=== PATIENT | male | born 2000 | race Two or more races ===

== ENCOUNTER 2024-11-30 16:36 | Emergency (ER) | payer SELFPAY ==
[2024-11-30 16:49] VITALS: BP 155/94
[2024-11-30 17:07] LABS: Hematocrit 44.2 % (39.0-52.0); Hemoglobin 15.7 g/dL (13.0-18.0); Mean Corp Hgb Conc. 35.5 g/dL (33.0-37.0); Mean Corpuscular Volume 83.4 fL (80.0-94.0); Nucleated Red Blood Cells % 0 % (-); Platelet Count 231 10^3/uL (130-400); Red Cell Dist. Width 11.5 % (11.5-14.5)
[2024-11-30 17:21] LABS: ALT (SGPT) 16 U/L (0-50); AST (SGOT) 25 U/L (17-59); Albumin 5.7 g/dl (3.5-5.0); Alkaline Phosphatase 71 U/L (38-126); Blood Urea Nitrogen 10 mg/dl (9-20); Calcium 10.1 mg/dl (8.4-10.2); Carbon Dioxide 24 mmol/L (22-30); Chloride 105 mmol/L (98-107); Glucose 103 mg/dl (70-99); Potassium 4.1 mmol/L (3.5-5.1); Sodium 142 mmol/L (135-145); Total Protein 9.3 g/dl (6.3-8.2); eGFR > 60.00
[2024-11-30 17:32] LABS: Troponin I < 0.012 ng/ml
[2024-11-30 20:12] VITALS: BP 135/98
[2024-11-30 20:20] VITALS: BMI 16.5
[2024-11-30 21:00] VITALS: BP 128/85
--- NOTE | 2024-11-30 21:46 | ED.GENMED ---
History of Present Illness
General
Chief Complaint: Chest Pain
Source: patient and family
Time Seen by Provider: 11/30/24 20:18
History of Present Illness
History of Present Illness:
Note:
CHIEF COMPLAINT(S)
Dizziness and chest pain in the left upper chest.
HISTORY OF PRESENT ILLNESS
The patient is a 24-year-old male who presents with dizziness and pain in the left upper chest, near the left shoulder, persisting for the last two to three days. The dizziness and pain occurred concomitantly, and although the patient has
experienced similar symptoms intermittently since last year, the recent episode has been troublesome enough to affect daily activities, such as carrying objects with the left arm. The pain is exacerbated by arm movement and has occasionally left the
patient needing to stay immobile until the symptoms subside. When the pain occurs, the patient describes a sensation simon to feeling 'completely like drunk.' The patient denies recent injury, leg pain or swelling, trouble breathing, abdominal pain,
rashes, or hemoptysis. He reports occasional minor chest pain at rest that worsens with movement, suggesting a possible musculoskeletal origin rather than cardiac. There is tenderness localized to the left upper chest wall near the pectoralis
muscle, which raises the suspicion of muscle strain or potential costochondritis.
EXTERNAL RECORDS REVIEWED
The patients EKG and blood work were reviewed and reported as normal. Heart enzymes are within normal limits.
PHYSICAL EXAM
General: Alert, no acute distress.
Skin: Warm, dry.
Head: Normocephalic, atraumatic.
Neck: Supple, trachea midline.
Eyes, Ears, Nose, Mouth, and Throat: Oral mucosa moist.
Cardiovascular: Heart rate regular without murmur. No edema.
Respiratory: Lungs clear to auscultation bilaterally. Respirations are non-labored.
Gastrointestinal: Abdomen nondistended.
Back: Normal range of motion, Normal alignment.
Musculoskeletal: Tenderness noted in the left upper chest wall, medial to the left deltoid muscle at the pectoralis muscle. Normal range of motion, normal strength otherwise.
Neurological: Alert and oriented to person, place, time, and situation. No focal neurological deficit observed.
Psychiatric: Cooperative, appropriate mood & affect.
PLAN
1. Obtain a chest X-ray to rule out any rib dysfunction and confirm the absence of rib fracture or significant musculoskeletal pathology.
2. Review lab results and chest X-ray findings to ensure cardiac and aortic health.
3. Monitor symptoms and advise avoiding activities that exacerbate pain.
4. Follow-up for further evaluation and management based on X-ray findings.
DIFFERENTIAL DIAGNOSIS
The Differential Diagnosis includes, in no particular order and is not limited to:
1. Costochondritis
2. Muscular strain of the pectoralis muscle
3. Rib dysfunction or fracture
4. Myocardial ischemia (unlikely given normal EKG and heart enzymes)
5. Cardiac arrhythmia
6. Pericarditis
7. Pulmonary embolism (unlikely given normal respiratory findings and absence of leg swelling)
8. Anxiety or panic disorder
9. Gastroesophageal reflux disease
10. Pneumothorax (less likely given normal lung auscultation)
EKG
My independent EKG interpretation is:
- Rhythm: Normal sinus rhythm
- Heart Rate: 89 beats per minute
- [place]: Normal axis for age
- Intervals: Normal intervals
- Abnormalities: No acute ischemic changes
Disposition:
SUMMARY OF ENCOUNTER
The patient, a 24-year-old male, was seen in the emergency department with complaints of left upper chest pain near the shoulder. The pain was reproducible and clearly worsened with movement and palpation, suggesting a musculoskeletal cause rather
than a cardiogenic or pulmonary source, such as pulmonary embolism or aortic dissection. His vital signs were stable. An ECG showed normal sinus rhythm without ischemic changes, and lab results, including a normal comprehensive metabolic panel
(CMP), did not indicate any acute abnormalities. A chest X-ray was normal.
ASSESSMENT
Based on the clinical presentation and test results, the likely cause of the patients symptoms is musculoskeletal in nature, possibly muscular strain or costochondritis.
PLAN
The patient is advised to avoid activities that exacerbate the pain. Review lab results and chest X-ray findings to ensure cardiac and aortic health. Follow-up for further evaluation and management if symptoms persist or worsen.
INDEPENDENT REVIEW OF LABS AND INTERPRETATION OF TESTS
My independent review of CMP is normal.
My independent interpretation of the chest x-ray is normal.
My independent EKG interpretation is normal sinus rhythm without ischemic changes.
PATIENT EDUCATION AND COUNSELING
The patient was informed about the non-cardiogenic nature of his chest pain, likely due to a musculoskeletal issue. He was counseled to avoid activities that increase his symptoms and advised on the expected course and potential treatments for
musculoskeletal pain.
FOLLOW-UP INSTRUCTIONS
The patient should follow up with his primary care provider for further evaluation if symptoms do not improve or worsen.
MEDICAL DECISION MAKING
-Complexity of Data Reviewed: The differential diagnosis includes costochondritis, muscular strain of the pectoralis muscle, rib dysfunction or fracture, myocardial ischemia (unlikely given normal EKG and heart enzymes), cardiac arrhythmia,
pericarditis, anxiety or panic disorder, gastroesophageal reflux disease, pneumothorax (less likely given normal lung auscultation).
-Data:
Category 1
Non-emergency department records reviewed: The patients previous EKG and blood work were reviewed as normal.
My independent interpretation of EKG demonstrates normal sinus rhythm with no ischemic changes.
My interpretation of the chest x-ray indicates normal findings.
-Risk:
Consideration of Admission/Observation: Escalation of care including admission/observation was considered given the complexity and risk of the patients presenting complaint, exam findings, and their underlying comorbidities. However, ultimately I
feel the patient is safe for outpatient management with close follow-up. Reasoning: Work-up reassuring, does not reveal any acute life/organ-threatening processes, patients symptoms well controlled upon reevaluation, reexamination is reassuring,
vitals are stable, patient agreeable with discharge, reliable for follow-up.
DIAGNOSIS
1. Chest wall pain
2. Costochondritis - ICD-10: M94.0
3. Dizziness
Phy Exam
Physical Exam
Physical Exam:
.
Scores
Heart Score for Chest Pain Patients
STEMI patient?: Not applicable
Course
Orders/Labs/Results
Orders:
Orders
11/30/24 16:42
Electrocardiogram (*1) Urgent
Reason for Study: Chest Pain
Electrocardiogram (*1) Urgent
Reason for Study: Chest Pain
EKG- Treatment ONCE
EKG- Treatment ONCE
11/30/24 16:58
Complete Blood Count/With Diff Urgent
Comprehensive Metabolic Panel Urgent
Troponin I Urgent
11/30/24 20:32
CXR2 [CR Chest - 2 Views ] Urgent
Comment:
Reason For Exam: upper left chest pain
Abnormal Lab Results
11/30/24
16:58
MPV 10.6 H fL
(7.4-10.4)
Absolute Neuts (auto) 7.7 H 10^3/uL
(1.4-6.5)
Absolute Monos (auto) 0.7 H 10^3/uL
(0.1-0.6)
Lymphocytes % 18.8 L %
(20.5-51.1)
Glucose 103 H mg/dl
(70-99)
Total Protein 9.3 H g/dl
(6.3-8.2)
Albumin 5.7 H g/dl
(3.5-5.0)
11/30/24 16:58
11/30/24 16:58
Vital Signs
Initial and Last Documented VS:
Initial Vital Signs
Temp Pulse Resp BP Pulse Ox
97.9 F 115 19 155/94 100
11/30/24 16:49 11/30/24 16:49 11/30/24 16:49 11/30/24 16:49 11/30/24 16:49
Last Documented Vital Signs
Temp Pulse Resp BP Pulse Ox
97.9 F 75 12 128/89 99
11/30/24 16:49 11/30/24 21:09 11/30/24 21:09 11/30/24 21:57 11/30/24 21:47
*Pulse Oximetry
SaO2: 99
Oxygen Mode of Delivery: Room air
Patient hypoxic: no
*Critical Care Note
Total Time (30-74mins, 75-104mins- exclusive of procedures): Not Applicable
ED Attending Note
-
Portions of this chart may have been created with voice recognition software.� Occasional wrong word or��sound alike� substitutions may have occurred due to the inherent limitations of voice recognition software.
Discharge Plan
Departure
Patient Disposition: Home (Routine Discharge)
Date of Disposition: 11/30/24
Time of Disposition: 21:46
Patient with high blood pressure during this ER visit?: No
Discharge Problem:
Chest wall pain
Instructions: Chest Pain That Is Not Caused by the Heart (DC)
Prescriptions:
No Action
No Current Medications
0
Referrals:
NONE,* [Family Provider, Internal Medicine]
Activity Restrictions/Additional Instructions:
Please see your doctor in the next 3 to 5 days for follow-up and reevaluation. Return for worsening symptoms, shortness of breath, palpitations, passing out episode or any other concerns. Drink plenty of fluids. You may use ibuprofen as needed
for pain control
Interventions
Interventions:
*Risk Screen - Suicide Last Done: 11/30/24 16:49
*General Assessment Last Done: 11/30/24 16:49
*Neglect/Abuse Screening Last Done: 11/30/24 16:49
*ED- Fall Risk Assessment Last Done: 11/30/24 20:25
*ED COVID-19 Vaccine History Last Done: 11/30/24 20:25
*Nursing Disposition Last Done: 11/30/24 22:06
ED- Cardiac Assessment Last Done: 11/30/24 20:25
Discharge Date and Time
Discharge Date/Time: 11/30/24 22:08
Print Language: [place]
[2024-11-30 21:57] VITALS: BP 128/89
== END 2024-11-30 22:08 | disposition home or self-care (01) ==
LOC: EMR 16:36
PROVIDERS: Emergency Medicine; EMERGENCY PHYSICIAN Emergency Medicine
DX: M94.0 Chondrocostal junction syndrome [Tietze] (principal); R07.89 Other chest pain; R42 Dizziness and giddiness
CPT/HCPCS: 99285; 71046; 80053; 84484; 85025; 93005